=== PATIENT | female | born 1950 | race Caucasian/White ===

== ENCOUNTER → 2016-12-17 | Outpatient (CLI) | payer MEDICARE ==
--- NOTE | 2016-12-17 12:34 | REP ---
HIDA SCAN WITH GALLBLADDER EJECTION FRACTION: Following the intravenous administration of 6.3 mCi of technetium-99m mebrofenin, multiple images of the right upper quadrant are performed every 5 minutes for a period of 1 hour. Gallbladder is visualized at 10 minutes post injection. There is no biliary to bowel transit by 1 hour image which may indicate a hypertonic sphincter of Oddi. At the 1 hour mary kate 8 ounces of Ensure Enlive was ingested and further imaging performed for 1 hour. There is immediate biliary to bowel transit. Gallbladder activity is measured and gallbladder ejection fraction is calculated to be 82% which is normal. 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 Normal gallbladder ejection fraction. Signed by Jayant Mckenzie MD 12/17/2016 01:22 P
== END ==
LOC: M RAD 08:43
PROVIDERS: ATTEND Family Medicine
DX: R93.5 Abnormal findings on diagnostic imaging of other abdominal regions, including retroperitoneum (principal)
CPT/HCPCS: 78227; A9537; J2805